=== PATIENT | male | born 1980 ===

== ENCOUNTER 2017-07-13 06:55 | Day surgery (SDC) | payer OTHER ==
[2017-07-13] MEDS ORDERED: PERCOCET 5-3251 EACH PO (09:19)
[2017-07-13] MEDS ORDERED: COLACE100 MG PO (09:19)
== END 2017-07-13 12:55 | disposition home or self-care (01) ==
LOC: CIR.AMB 06:55
DX: K62.82 Dysplasia of anus (principal); A63.0 Anogenital (venereal) warts